=== PATIENT | female | born 1955 | race Caucasian/White ===

== ENCOUNTER 2017-11-26 06:15 | Emergency (ER) | payer BC, MEDICARE ==
[2017-11-26 06:55] LABS: #Basophils 0.1 thou/uL (0.0-0.2); #Eosinphils 0.2 thou/uL (0.0-0.7); #Lymphocytes 1.7 thou/uL (1.20-3.40); #Monocytes 0.5 thou/uL (0.11-0.59); #Neutrophils 4.6 thou/uL (1.40-6.50); %Basophils 1.8 % (0.0-1.0); %Eosinophils 2.7 % (0.0-10.0); %Lymphocytes 24.2 % (21.0-51.0); %Monocytes 7.6 % (0.0-10.0); %Neutrophils 63.8 % (42.0-75.0); Hemoglobin 14.3 g/dL (12.0-16.0); Mean Corpuscular HGB CONC 33.9 g/dL (32.0-36.0); Mean Corpuscular Hemoglobin 31.3 pg (27.0-31.0); Mean Corpuscular Volume 92.4 fl (81.0-99.0); Mean Platelet Volume 7.4 fL (7.4-10.4); Platelet Count 267 thou/uL (130-400); RBC Distribution Width 11.4 % (11.5-14.5); Red Blood Cell (RBC) Count 4.58 mill/uL (4.20-5.40); White Blood Cell (WBC) Count 7.2 thou/uL (4.8-10.8)
[2017-11-26] MEDS ORDERED: Nitroglycerin 0.4 MG TAB (25 Tab Bottle) ONE (06:59)
[2017-11-26] MEDS ORDERED: Acetaminophen 500 MG TAB ONE (07:07)
[2017-11-26 07:09] LABS: ALT (SGPT) 11 U/L (8-55); Albumin 4.2 g/dL (3.4-4.8); Alkaline Phosphatase 48 U/L (40-150); Anion Gap 19 mmol/L (10-20); BUN (Urea Nitrogen) 10 mg/dL (9.8-20.1); Bilirubin, Total 0.6 mg/dL (0.2-1.2); CK (CPK) 131 U/L (29-168); Calc. Creatinine Clearance 0 mL/min (70-130); Calcium 9.1 mg/dL (7.8-10.44); Carbon Dioxide 21 mmol/L (23-31); Chloride 104 mmol/L (98-107); Estimated GFR-MDRD 89; Globulin 3.4 g/dL (2.4-3.5); Glucose 88 mg/dL (80-115); Lipase 29 U/L (8-78); Potassium 4.4 mmol/L (3.5-5.1); Protein, Total 7.6 g/dL (6.0-8.3); Sodium 140 mmol/L (136-145)
[2017-11-26 07:10] LABS: CKMB 2.2 ng/mL (0-6.6); Troponin I Less than 0.010 ng/mL (< 0.028)
[2017-11-26 07:15] LABS: AST (SGOT) 27 U/L (5-34)
--- NOTE | 2017-11-26 10:48 | RAD ---
CHEST 1 VIEW: HISTORY: Chest pain. Dyspnea. FINDINGS: No comparison. Cardiac silhouette is magnified by projection. Pulmonary vasculature is upper limits of normal. Mediastinum is midline with left subclavian Port-A-Cath. There is no lobar consolidatio n or evidence of pneumothorax. 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 IMPRESSION: No active cardiopulmonary abnormalities are demonstrated. POS: [facility]
== END 2017-11-26 08:10 | disposition home or self-care (01) ==
LOC: NAV ERS 06:15
DX: R07.89 Other chest pain (principal); I10 Essential (primary) hypertension; G70.00 Myasthenia gravis without (acute) exacerbation; I48.91 Unspecified atrial fibrillation; F17.210 Nicotine dependence, cigarettes, uncomplicated; Z79.899 Other long term (current) drug therapy
CPT/HCPCS: 36415; 71045; 80053; 82553; 83690; 84484; 85025; 85379; 93005